=== PATIENT | male | born 1970 | race Caucasian/White ===

== ENCOUNTER 2017-09-30 12:09 | Day surgery (SDC) | payer OTHER ==
[~2017-09-30] VITALS: Ht 170.3 cm; Wt 97.0 kg
[2017-09-30] VITALS (11 sets, daily range): BP systolic 111–128; BP diastolic 67–87; PULSE 57–62; TEMP 98.6
[2017-09-30] MEDS ORDERED: LIPITOR 80MG80 MG PO (12:31)
[2017-09-30] MEDS ORDERED: ASPIRIN E.C. 8181 MG PO (12:32)
[2017-09-30] MEDS ORDERED: LEXAPRO 10MG10 MG PO (12:33)
[2017-09-30] MEDS ORDERED: PRINIVIL5 MG PO (12:33)
[2017-09-30 12:43] LABS: HEMATOCRIT 44.2 % (42.0-52.0); HEMOGLOBIN 14.9 g/dl (13.5-18.0); MEAN CELL VOLUME 86 fl (80.0-100.0); MEAN CORPUSCULAR HEMOGLOBIN 29 pg (27.0-31.0); MEAN CORPUSCULAR HGB CONC 34 g/dl (33.0-37.0); MEAN PLATELET VOLUME 9.1 fl (7.4-10.4); PLATELET COUNT 350 K/mm3 (130-400); RED BLOOD COUNT 5.14 M/mm3 (4.20-5.60)
[2017-09-30 12:48] LABS: INR 0.9 (0.8-3.0); PROTHROMBIN TIME 10.3 SECONDS (9.7-12.8)
[2017-09-30 12:54] LABS: CALCIUM 9.4 mg/dL (8.4-10.2); CREATININE, serum 0.89 mg/dL (0.66-1.25); POTASSIUM 4.5 mmol/L (3.4-5.0)
== END 2017-09-30 20:05 | disposition home or self-care (01) ==
LOC: COL.CAR 12:09
PROVIDERS: Internal Medicine Cardiovascular Disease
DX: R94.39 Abnormal result of other cardiovascular function study (principal); I10 Essential (primary) hypertension; Z95.5 Presence of coronary angioplasty implant and graft; Z86.79 Personal history of other diseases of the circulatory system
CPT/HCPCS: J2250; J3010; Q9967